=== PATIENT | female | born 1985 | race African-American/Black ===

== ENCOUNTER 2022-01-21 18:27 | Inpatient (IN) | payer BC ==
[2022-01-21] MEDS ORDERED: SODIUM CHLORIDE 0.9% 500 ML 500 ML IV STA (19:12)
--- NOTE | 2022-01-21 19:21 | ED ---
General Adult HPI - General Chief complaint: Chest Pain Stated complaint: SOB/Chest pain/Back pain Time Seen by Provider: 01/21/22 19:03 Source: patient Mode of arrival: wheelchair Limitations: no limitations - History of Present Illness Initial comments: This 36-year-old female with past medical history of a pulmonary embolism in May 2021 and hypertension presents emergency Department with shortness of breath, back pain with deep inspiration and episodic chest pain. Patient states all the symptoms have been present for the last 2 weeks, however the last 1-2 days while the symptoms have been worsening. Patient states her shortness of breath and pain with deep inspiration are constant, however the chest pain seems to come and go. Patient states she did have pulmonary embolism last May and was placed on Xerelto. Patient states she is taking 20 mg one time a day and has been taking this since she had a pulmonary embolism in May 2021. Patient states she does currently take lisinopril for her high blood pressure. Patient states over the last couple days she has also noticed a dry cough along with nasal congestion. Patient states her back pain is currently 8/10 when taking a deep inspiration. Patient denies any abdominal pain, nausea, vomiting, hemoptysis, change in bowel or bladder, lower back pain, neck pain, saddle anes thesia, bowel or bladder retention/incontinence, change in vision, headache, lightheadedness, dizziness. Patient denies any jaw pain or arm pain. Patient denies any recent calf pain, swelling, tenderness or redness. Patient denies any works or edema or swelling. - Related Data Home Medications Medication Instructions Recorded Confirmed Ferrous Sulfate [Feosol] 325 mg PO DAILY 01/21/22 01/21/22 Rivaroxaban [Xarelto] 20 mg PO DAILY 01/21/22 01/21/22 lisinopriL [Zestril] 10 mg PO DAILY 01/21/22 01/21/22 Allergies Allergy/AdvReac Type Severity Reaction Status Date / Time No Known Allergies Allergy Verified 01/21/22 20:10 Review of Systems ROS Statement: Those systems with pertinent positive or pertinent negative responses have been documented in the HPI. ROS Other: All systems not noted in ROS Statement are negative. Past Medical History Past Medical History: No Reported History History of Any Multi-Drug Resistant Organisms: None Reported Past Surgical History: No Surgical Hx Reported Past Psychological History: No Psychological Hx Reported Smoking Status: Former smoker Past Alcohol Use History: None Reported Past Drug Use History: None Reported General Exam Limitations: no limitations General appearance: alert, in no apparent distress Head exam: Present: atraumatic, normocephalic, normal inspection Eye exam: Present: normal appearance, PERRL, EOMI. Absent: scleral icterus, conjunctival injection, periorbital swelling ENT exam: Present: normal exam, mucous membranes moist Neck exam: Present: normal inspection, full ROM. Absent: tenderness, meningismus, lymphadenopathy Respiratory exam: Present: normal lung sounds bilaterally. Absent: respiratory distress, wheezes, rales, rhonchi, stridor Cardiovascular Exam: Present: regular rate, normal rhythm, normal heart sounds. Absent: systolic murmur, diastolic murmur, rubs, gallop, clicks GI/Abdominal exam: Present: soft, normal bowel sounds. Absent: distended, tenderness, guarding, rebound, rigid Extremities exam: Present: normal inspection, full ROM, normal capillary refill. Absent: tenderness, pedal edema, joint swelling, calf tenderness Back exam: Present: normal inspection, full ROM, paraspinal tenderness (Thoracic paraspinal tenderness to palpation). Absent: CVA tenderness (R), CVA tenderness (L), vertebral tenderness Neurological exam: Present: alert, oriented X3, CN II-XII intact Psychiatric exam: Present: normal affect, normal mood Skin exam: Present: warm, dry, intact, normal color. Absent: rash Course Vital Signs 01/21/22 01/21/22 01/21/22 18:31 18:49 22:01 Temperature 97.6 F Pulse Rate 85 79 Pulse Rate [ 78 Interlocking Installer ] Respiratory 16 18 Rate Blood Pressure 175/103 149/79 O2 Sat by Pulse 99 99 Oximetry EKG Findings - EKG Comments: EKG Findings:: EKG impression: Sinus rhythm. Ventricular rate 76 beats a minute. NC interval 146. QRS duration 75. QT/QTc 406/437. Review to myself and my attending, Dr. Lubin. Medical Decision Making - Medical Decision Making This 36-year-old female presents emergency department with increased shortness of breath, pain with deep inspiration and episodic chest pain. Patient currently is taking Xarelto 20 mg 1 times a day since last May when she was diagnosed with bilateral pulmonary embolisms. Patient with hemoglobin 7.5- patient states she is unsure her hemoglobin usually is, however she states she does take iron supplement. Patient's coagulation unremarkable. Chemistry unremarkable. Troponin less than 0.012. COVID-19, influenza A/B not detected. Chest x-ray without any acute abnormalities. Patient CTA impression evidence of multiple emboli in the lower lobe pulmonary artery branches bilaterally. Discussed case with my attending, Dr. Lubin. Spoke with Scott Arora from [facility] who agreed to accept patient to their services. He suggested I start patient on high-dose heparin. I did start patient on high-dose heparin here in the emergency department. I did consult hematology. Patient verbally agreed to be admitted for further evaluation, workup and treatment. - Lab Data Result diagrams: 01/21/22 19:25 01/21/22 19:25 Lab Results 01/21/22 01/21/22 01/21/22 Range/Units 19:25 19:25 19:25 WBC 6.8 (3.8-10.6) k/uL RBC 4.88 (3.80-5.40) m/uL Hgb 7.5 L (11.4-16.0) gm/dL Hct 27.6 L (34.0-46.0) % MCV 56.5 L (80.0-100.0) fL MCH 15.4 L (25.0-35.0) pg MCHC 27.2 L (31.0-37.0) g/dL RDW 21.6 H (11.5-15.5) % Plt Count 257 (150-450) k/uL MPV 6.9 Neutrophils % 59 % Lymphocytes % 31 % Monocytes % 5 % Eosinophils % 2 % Basophils % 1 % Neutrophils # 4.0 (1.3-7.7) k/uL Lymphocytes # 2.1 (1.0-4.8) k/uL Monocytes # 0.3 (0-1.0) k/uL Eosinophils # 0.1 (0-0.7) k/uL Basophils # 0.0 (0-0.2) k/uL Manual Slide Review Performed Hypochromasia Marked Poikilocytosis Slight Poikilocytosis (manual Present Anisocytosis Moderate Microcytosis Marked Target Cells Present PT 10.2 (9.0-12.0) sec INR 0.9 (<1.2) APTT 22.4 (22.0-30.0) sec Sodium 138 (137-145) mmol/L Potassium 3.9 (3.5-5.1) mmol/L Chloride 107 (98-107) mmol/L Carbon Dioxide 19 L (22-30) mmol/L Anion Gap 12 mmol/L BUN 10 (7-17) mg/dL Creatinine 0.74 (0.52-1.04) mg/dL Est GFR (CKD-EPI)AfAm >90 (>60 ml/min/1.73 sqM) Est GFR (CKD-EPI)NonAf >90 (>60 ml/min/1.73 sqM) Glucose 102 H (74-99) mg/dL Calcium 8.6 (8.4-10.2) mg/dL Magnesium 1.9 (1.6-2.3) mg/dL Total Bilirubin 0.5 (0.2-1.3) mg/dL AST 30 (14-36) U/L ALT 18 (4-34) U/L Alkaline Phosphatase 95 (38-126) U/L Troponin I (0.000-0.034) ng/mL Total Protein 7.4 (6.3-8.2) g/dL Albumin 3.9 (3.5-5.0) g/dL Lipase 61 (23-300) U/L Coronavirus (PCR) (Not Detectd) Influenza Type A RNA (Not Detectd) Influenza Type B (PCR) (Not Detectd) 01/21/22 01/21/22 01/21/22 Range/Units 19:25 19:25 19:25 WBC (3.8-10.6) k/uL RBC (3.80-5.40) m/uL Hgb (11.4-16.0) gm/dL Hct (34.0-46.0) % MCV (80.0-100.0) fL MCH (25.0-35.0) pg MCHC (31.0-37.0) g/dL RDW (11.5-15.5) % Plt Count (150-450) k/uL MPV Neutrophils % % Lymphocytes % % Monocytes % % Eosinophils % % Basophils % % Neutrophils # (1.3-7.7) k/uL Lymphocytes # (1.0-4.8) k/uL Monocytes # (0-1.0) k/uL Eosinophils # (0-0.7) k/uL Basophils # (0-0.2) k/uL Manual Slide Review Hypochromasia Poikilocytosis Poikilocytosis (manual Anisocytosis Microcytosis Target Cells PT (9.0-12.0) sec INR (<1.2) APTT (22.0-30.0) sec Sodium (137-145) mmol/L Potassium (3.5-5.1) mmol/L Chloride (98-107) mmol/L Carbon Dioxide (22-30) mmol/L Anion Gap mmol/L BUN (7-17) mg/dL Creatinine (0.52-1.04) mg/dL Est GFR (CKD-EPI)AfAm (>60 ml/min/1.73 sqM) Est GFR (CKD-EPI)NonAf (>60 ml/min/1.73 sqM) Glucose (74-99) mg/dL Calcium (8.4-10.2) mg/dL Magnesium (1.6-2.3) mg/dL Total Bilirubin (0.2-1.3) mg/dL AST (14-36) U/L ALT (4-34) U/L Alkaline Phosphatase (38-126) U/L Troponin I <0.012 (0.000-0.034) ng/mL Total Protein (6.3-8.2) g/dL Albumin (3.5-5.0) g/dL Lipase (23-300) U/L Coronavirus (PCR) Not Detected (Not Detectd) Influenza Type A RNA Not Detected (Not Detectd) Influenza Type B (PCR) Not Detected (Not Detectd) Disposition Clinical Impression: Pulmonary embolism, bilateral Disposition: ADMITTED IP TO THIS [facility] Condition: Serious Referrals: None,Stated [Primary Care Provider] - 1-2 days
[2022-01-21 19:32] LABS: Anisocytosis Moderate; Basophils % (A) 1 %; Eosinophils # (A) 0.1 k/uL (0-0.7); Eosinophils % (A) 2 %; HCT 27.6 % (34.0-46.0); HGB 7.5 gm/dL (11.4-16.0); Hypochromasia Marked; Lymphocytes # (A) 2.1 k/uL (1.0-4.8); Lymphocytes % (A) 31 %; MCH 15.4 pg (25.0-35.0); MCHC 27.2 g/dL (31.0-37.0); MCV 56.5 fL (80.0-100.0); Mean Platelet Volume 6.9; Microcytosis Marked; Monocytes # (A) 0.3 k/uL (0-1.0); Monocytes % (A) 5 %; Neutrophils % (A) 59 %; Platelet Count 257 k/uL (150-450); Poikilocytosis Slight; RBC 4.88 m/uL (3.80-5.40); RDW 21.6 % (11.5-15.5); WBC 6.8 k/uL (3.8-10.6)
--- NOTE | 2022-01-21 19:41 | XR ---
EXAMINATION TYPE: XR chest 2V DATE OF EXAM: 01/21/2022 COMPARISON: NONE HISTORY: Short of breath TECHNIQUE: 2 views FINDINGS: Heart and mediastinum are normal. Lungs are clear. Diaphragm is normal. Bony thorax appears normal. IMPRESSION: Normal chest
[2022-01-21 19:55] LABS: ALT 18 U/L (4-34); AST 30 U/L (14-36); African American GFR (CKD) >90 (>60 ml/min/1.73 sqM); Albumin 3.9 g/dL (3.5-5.0); Alkaline Phosphatase 95 U/L (38-126); Anion Gap 12 mmol/L; Blood Urea Nitrogen 10 mg/dL (7-17); Calcium 8.6 mg/dL (8.4-10.2); Carbon Dioxide 19 mmol/L (22-30); Chloride 107 mmol/L (98-107); Glucose 102 mg/dL (74-99); Lipase 61 U/L (23-300); Magnesium 1.9 mg/dL (1.6-2.3); Non-African American GFR(CKD) >90 (>60 ml/min/1.73 sqM); Potassium 3.9 mmol/L (3.5-5.1); Sodium 138 mmol/L (137-145); Total Bilirubin 0.5 mg/dL (0.2-1.3); Total Protein 7.4 g/dL (6.3-8.2)
[2022-01-21 19:56] LABS: INR 0.9 (<1.2)
[2022-01-21 19:57] LABS: Partial Thromboplastin Time 22.4 sec (22.0-30.0); Prothrombin Time 10.2 sec (9.0-12.0)
--- NOTE | 2022-01-21 20:03 | CT ---
EXAMINATION TYPE: CT chest angio for PE DATE OF EXAM: 01/21/2022 COMPARISON: None HISTORY: Chest and back pain. CT DLP: 914.1 mGycm Automated exposure control for dose reduction was used. CONTRAST: Performed with IV Contrast, patient injected with 65ml mL of Isovue 370. Images obtained from the thoracic inlet to the diaphragm with IV contrast. There are Three-D postproc essed images. Mediastinum is normal. There is no thoracic aortic aneurysm or dissection. There are no hilar masses. Heart size is normal. No pericardial effusion. The lungs are clear of infiltrate. No evidence of a pulmonary mass. There is some minimal interstitia l density in the lateral right lower lobe. There appears to be some fusiform filling defect in the lower lobe pulmonary artery branches bilatera lly. The thoracic spine is intact. Sternum is intact. There is no compression fracture. Upper abdominal so ft tissues are intact. There are clips from gastric bariatric surgery. IMPRESSION: Exam shows evidence of multiple emboli in the lower lobe pulmonary artery branches bilaterally.
[2022-01-21 20:21] LABS: Poikilocytosis (M) Present; Target Cells Present
[2022-01-21] MEDS ORDERED: HEPARIN SODIUM 1,000 UN/ML (10ML VL) IV ONE (21:50)
[2022-01-21] MEDS ORDERED: HEPARIN SODIUM 1,000 UN/ML (10ML VL) IV PRN (21:50)
[2022-01-21] MEDS ORDERED: NALOXONE 0.4 MG/ML 1 ML VIAL IV PRN (21:52)
[2022-01-21] MEDS ORDERED: ONDANSETRON 4 MG/2 ML VIAL IVP PRN (21:52)
[2022-01-21] MEDS ORDERED: MORPHINE SULFATE 2 MG/ML SYRINGE IV PRN (21:52)
[2022-01-21] MEDS: HEPARIN SOD,PORK IN 0.45% NACL 25,000 UNIT in 0.45% NACL 1 250ML.BAG IV SCH (22:21)
[2022-01-21] MEDS: SODIUM CHLORIDE 0.9% 1,000 ML IV SCH (22:22)
[2022-01-21 23:23] LABS: Prothrombin Time 10.4 sec (9.0-12.0)
[2022-01-21 23:38] LABS: Partial Thromboplastin Time 21.5 sec (22.0-30.0)
[2022-01-22 04:51] LABS: Anisocytosis Moderate; Basophils % (A) 0 %; Eosinophils # (A) 0.2 k/uL (0-0.7); Eosinophils % (A) 2 %; HCT 25.1 % (34.0-46.0); Hypochromasia Marked; Lymphocytes # (A) 2.7 k/uL (1.0-4.8); Lymphocytes % (A) 39 %; MCH 15.2 pg (25.0-35.0); MCHC 26.2 g/dL (31.0-37.0); MCV 58.2 fL (80.0-100.0); Mean Platelet Volume 6.9; Microcytosis Marked; Monocytes # (A) 0.3 k/uL (0-1.0); Monocytes % (A) 4 %; Neutrophils # (A) 3.6 k/uL (1.3-7.7); Neutrophils % (A) 51 %; Platelet Count 237 k/uL (150-450); Poikilocytosis Slight; RBC 4.32 m/uL (3.80-5.40); RDW 21.8 % (11.5-15.5); WBC 7.1 k/uL (3.8-10.6)
[2022-01-22 04:57] LABS: HGB 6.6 gm/dL (11.4-16.0)
[2022-01-22 05:32] LABS: Anisocytosis (M) Present; Poikilocytosis (M) Present; Polychromasia Present; RBC Fragments Present; Target Cells 2+
[2022-01-22] MEDS: lisinopriL 10 MG TAB PO SCH (09:37)
[2022-01-22] MEDS: FERROUS SULFATE 325 MG TAB PO SCH (09:37)
[2022-01-22 10:55] LABS: Anisocytosis Marked; Basophils % (A) 0 %; Eosinophils # (A) 0.1 k/uL (0-0.7); Eosinophils % (A) 2 %; HGB 7.7 gm/dL (11.4-16.0); Hypochromasia Marked; Lymphocytes # (A) 1.7 k/uL (1.0-4.8); Lymphocytes % (A) 30 %; MCH 16.2 pg (25.0-35.0); MCHC 27.5 g/dL (31.0-37.0); MCV 58.9 fL (80.0-100.0); Mean Platelet Volume 8.3; Microcytosis Marked; Monocytes # (A) 0.2 k/uL (0-1.0); Monocytes % (A) 4 %; Neutrophils # (A) 3.4 k/uL (1.3-7.7); Neutrophils % (A) 60 %; Platelet Count 238 k/uL (150-450); Poikilocytosis Moderate; RBC 4.76 m/uL (3.80-5.40); WBC 5.6 k/uL (3.8-10.6)
[2022-01-22] MEDS ORDERED: HEPARIN SODIUM 1,000 UN/ML (10ML VL) IV PRN (11:09)
[2022-01-22 11:17] LABS: Poikilocytosis (M) Present; Target Cells Present; Tear Drop Cells Present
[2022-01-22] MEDS: HEPARIN SOD,PORK IN 0.45% NACL 25,000 UNIT in 0.45% NACL 1 250ML.BAG IV SCH ×3 (11:17→17:52)
[2022-01-22 11:18] LABS: Mixed Population RBC Present; Polychromasia Present
--- NOTE | 2022-01-22 13:00 | ECHOF ---
Referral Reason:PE MEASUREMENTS -------- HEIGHT: 152.4 cm WEIGHT: 136.1 kg BP: 130/56 RVIDd: 3.1 cm (< 3.3) IVSd: 1.1 cm (0.6 - 1.1) LVIDd: 4.9 cm (3.9 - 5.3) LVPWd: 1.1 cm (0.6 - 1.1) IVSs: 1.8 cm LVIDs: 2.7 cm LVPWs: 1.5 cm LA Diam: 4.2 cm (2.7 - 3.8) LAESV Index (A-L): 34.93 ml/m Ao Diam: 2.7 cm (2.0 - 3.7) AV Cusp: 2.1 cm (1.5 - 2.6) MV EXCURSION: 9.111 mm (> 18.000) MV EF SLOPE: 57 mm/s (70 - 150) EPSS: 0.7 cm MV E Moshe: 1.10 m/s MV DecT: 260 ms MV A Moshe: 0.91 m/s MV E/A Ratio: 1.22 AV maxP.73 mmHg AV meanP.30 mmHg RAP: 5.00 mmHg RVSP: 36.08 mmHg FINDINGS -------- Sinus rhythm. This was a technically good study. The left ventricular size is normal. There is borderline concentric left ventricular hypertrophy. Overall left ventricular systolic function is normal with, an EF between 60 - 65 %. The right ventricle is normal in size. LA is moderately dilated 34-39 ml/m2 The right atrium is normal in size. Interatrial and interventricular septum intact. Trace to mild aortic regurgitation. There is trace to mild mitral regurgitation. Mild tricuspid regurgitation present. There is mild pulmonary hypertension. The right ventricular systolic pressure, as measured by Doppler, is 36.08mmHg. Trace/mild (physiologic) pulmonic regurgitation. The aortic root size is normal. Normal inferior vena cava with normal inspiratory collapse consistent with estimated right atrial pre ssure of 5 mmHg. There is no pericardial effusion. CONCLUSIONS -------- 1. The left ventricular size is normal. 2. There is borderline concentric left ventricular hypertrophy. 3. Overall left ventricular systolic function is normal with, an EF between 60 - 65 %. 4. LA is moderately dilated 34-39 ml/m2 5. Trace to mild aortic regurgitation. 6. There is trace to mild mitral regurgitation. 7. Mild tricuspid regurgitation present. 8. There is mild pulmonary hypertension. 9. The right ventricular systolic pressure, as measured by Doppler, is 36.08mmHg. 10. Trace/mild (physiologic) pulmonic regurgitation. 11. There is no pericardial effusion. GLOVE TURNER: Amanda Mosquera RDCS
[2022-01-22 14:09] LABS: Appearance,Urine Clear (Clear); Bilirubin,Urine Negative (Negative); Blood,Urine Negative (Negative); Color,Urine Light Yellow; Glucose,Urine (UA) Negative (Negative); Ketones,Urine Negative (Negative); Leukocyte Esterase,Urine Negative (Negative); Nitrite,Urine Negative (Negative); Protein,Urine Negative (Negative); Specific Gravity,Urine 1.008 (1.001-1.035); Urobilinogen,Urine <2.0 mg/dL (<2.0)
--- NOTE | 2022-01-22 14:39 | P.HPIM ---
History of Present Illness H&P Date: 01/22/22 This is a 36 year old female in the with complaints of increased shortness of breath and back pain with deep inspiration. Patient has symptoms ongoing for the last 2 weeks with interval worsening the last 1-2 days. Patient also presents with dry cough and nasal congestion. Denies fever. Patient does have a history of pulmonary embolism in May 2021 as well as hypertension. Patient had gastric bypass 10 years and since has had issues with iron deficiency anemia requiring weekly iron transfusions. Danis following with Dr Kaushik Lopez in the primary care setting. She is from [place], and was following with a harbormaster there. Reports no complications from bypass surgery. Home medicati ons include xarelto and lisinopril, and daily iron supplement. Patient states that she had a chest CT done recently which did not show any pulmonary emboli, and states at that time her hemoglobin was low and she was offered blood transfusion but she declined. She has chronic fatigue related to anemia, as well as shortness of breath which she states makes it difficult to exercise. She is currently working, and has a desk job, she is mostly sedentary. There is a family history of blood clots, states her aunt and cousin, also family history of diabetes mellitus, hypertension. Denies history or family history of known clotting disorder, and she has never had clotting studies done. Chest x-ray on admission shows normal chest. Chest CTA showing multiple emboli in the lower lobe pulmonary artery branches bilaterally. EKG shows sinus rhythm heart rate 76, QT interval 437. On admission hemoglobin was found to be 7.5, troponin negative. Patient is negative for Covid, and influenza A/B. Admitted to the hospital and started on high intensity heparin gtt. Subsequently patients hemoglobin dropped to 6.6 this morning and 1 unit of packed red blood cells has been ordered with hemoglobin afterwards 7.7. Hematology was consulted for further evaluation, iron studes, B12 and folate have been ordered. She continues on heparin gtt at low intensity after discussion with hematology. Echocardiogram has been completed with no evidence for right heart strain, ejection fraction reported at 60-65%, the left atrium is moderately dilated, there is trace to mild aortic and mitral regurg, mild tricuspid regurg, mild pulmonary hypertension, no pericardial effusion. REVIEW OF SYSTEMS: CONSTITUTIONAL: No fever, no malaise. Reports fatigue. HEENT: No recent visual problems or hearing problems. Denied any sore throat. CARDIOVASCULAR: No chest pain, orthopnea, PND, no palpitations, no syncope. PULMONARY: Denies hemoptysis, reports shortness of breath with exertion, reports non productive cough. GASTROINTESTINAL: No diarrhea, no nausea, no vomiting, no abdominal pain. NEUROLOGICAL: No headaches, no weakness, no numbness. HEMATOLOGICAL: Denies any bleeding or petechiae. GENITOURINARY: Denies any burning micturition, frequency, or urgency. MUSCULOSKELETAL/RHEUMATOLOGICAL: Denies any joint pain, swelling, or any muscle pain. ENDOCRINE: Denies any polyuria or polydipsia. The rest of the 14-point review of systems is negative. PHYSICAL EXAMINATION: GENERAL: The patient is alert and oriented x3, not in any acute distress. Well developed, well nourished. Obese. HEENT: Pupils are round and equally reacting to light. EOMI. No scleral icterus. No conjunctival pallor. Normocephalic, atraumatic. No pharyngeal erythema. No thyromegaly. CARDIOVASCULAR: S1 and S2 present. No murmurs, rubs, or gallops. PULMONARY: Chest is clear to auscultation, no wheezing or crackles. ABDOMEN: Soft, nontender, nondistended, normoactive bowel sounds. No palpable or ganomegaly. MUSCULOSKELETAL: No joint swelling or deformity. EXTREMITIES: No cyanosis, clubbing, or pedal edema. NEUROLOGICAL: Gross neurological examination did not reveal any focal deficits. SKIN: No rashes. Assessment and plan Assessment 1 Dyspnea secondary to acute bilateral pulmonary emboli with history of PE. Patient is anticoagulated with xarelto in the outpatient setting, she is now on heparin infusion. Patient will need lifelong anticoagulation. -Acute on chronic anemia, iron deficient, exacerbated by supratherapeutic ptt while on heparin infusion. Patient is maintained on iron transfusions weekly. Has not had one recently. No evidence for acute bleeding. -Mild pulmonary hypertension -History hypertension maintained on lisinopril -S/P Bariatric surgery in 2011 -Obesity -History anxiety/depression -Never smoker -History of marijuana use quit in 2020 GI prophylaxis: Pepcid DVT prophylaxis: heparin infusion Full Code Plan Transfuse 1 unit PRBC today Check Iron studies, B12, folate level 2D echocardiogram reviewed, EF 60-65% Venous doppler Follow up CBC in AM Hematology consultation The impression and plan of care has been dictated by Debo Kilpatrick Nurse Practitioner as directed. Dr. Randall MD I have performed a history and physical examination and medical decision making of this patient, discussed the same with the dictator, and agree with the dictators assessment and plan as written, documented as a scribe. Based on total visit time, I have performed more than 50% of this visit. Past Medical History Past Medical History: No Reported History History of Any Multi-Drug Resistant Organisms: None Reported Past Surgical History: No Surgical Hx Reported Past Psychological History: No Psychological Hx Reported Smoking Status: Former smoker Past Alcohol Use History: None Reported Past Drug Use History: None Reported - Past Family History Mother Family Medical History: Diabetes Mellitus, Hypertension, Vascular Disorder Additional Family Medical History / Comment(s): Maternal side of family cousin and great Aunt with blood clots. Father Family Medical History: Diabetes Mellitus Additional Family Medical History / Comment(s): Bleeding hemorrhoids that required transfusions, heart problems. Medications and Allergies Home Medications Medication Instructions Recorded Confirmed Type Ferrous Sulfate [Feosol] 325 mg PO DAILY 01/21/22 01/21/22 History Rivaroxaban [Xarelto] 20 mg PO DAILY 01/21/22 01/21/22 History lisinopriL [Zestril] 10 mg PO DAILY 01/21/22 01/21/22 History Allergies Allergy/AdvReac Type Severity Reaction Status Date / Time No Known Allergies Allergy Verified 01/21/22 20:10 Physical Exam Vitals: Vital Signs Temp Pulse Pulse Resp BP Pulse Ox 01/22/22 08:00 97.0 F L 69 17 130/56 97 01/22/22 07:25 97 F L 69 18 130/56 97 01/22/22 06:55 97.4 F L 65 18 152/78 01/22/22 06:45 97.4 F L 63 18 143/70 01/22/22 06:39 97.3 F L 65 18 152/84 97 01/22/22 05:00 73 18 141/94 96 01/22/22 02:33 69 18 139/95 95 01/21/22 22:01 79 18 149/79 99 01/21/22 18:49 78 01/21/22 18:31 97.6 F 85 16 175/103 99 Intake and Output 01/21/22 01/22/2222 22:59 06:59 14:59 Intake Total 154.463 276 Balance 154.463 276 Intake: Intake, IV Titration 154.463 Amount Heparin Sod,Pork in 0.45% 154.463 NaCl 25,000 unit In 0.45 % NaCl 1 250ml.bag @ 16.9 UNITS/KG/HR 22.997 mls/ hr IV .[id number] [facility] Rx#: [id number] Blood Product 0 276 Rc Pheresis 2 As3 Unit 0 276 [id number] Other: Weight 136.078 kg Results CBC & Chem 7: 01/22/22 10:29 01/21/22 19:25 Labs: Abnormal Lab Results - Last 24 Hours (Table) 01/21/22 01/21/22 01/21/22 Range/Units 19:25 19:25 21:58 Hgb 7.5 L (11.4-16.0) gm/dL Hct 27.6 L (34.0-46.0) % MCV 56.5 L (80.0-100.0) fL MCH 15.4 L (25.0-35.0) pg MCHC 27.2 L (31.0-37.0) g/dL RDW 21.6 H (11.5-15.5) % APTT 21.5 L (22.0-30.0) sec Carbon Dioxide 19 L (22-30) mmol/L Glucose 102 H (74-99) mg/dL Crossmatch 01/22/22 01/22/22 01/22/22 Range/Units 03:39 03:39 05:30 Hgb 6.6 L* (11.4-16.0) gm/dL Hct 25.1 L (34.0-46.0) % MCV 58.2 L (80.0-100.0) fL MCH 15.2 L (25.0-35.0) pg MCHC 26.2 L (31.0-37.0) g/dL RDW 21.8 H (11.5-15.5) % APTT >200.0 H* (22.0-30.0) sec Carbon Dioxide (22-30) mmol/L Glucose (74-99) mg/dL Crossmatch See Detail Assessment and Plan Time with Patient: Less than 30
[2022-01-22 15:31] LABS: % Iron Saturation 37.58 (12.00-45.00)
--- NOTE | 2022-01-22 15:58 | US ---
EXAMINATION TYPE: US venous doppler duplex LE BI DATE OF EXAM: 01/22/2022 1:08 PM COMPARISON: NONE CLINICAL HISTORY: 36-year-old female bilateral PE. SIDE PERFORMED: Bilateral TECHNIQUE: The lower extremity deep venous system is examined utilizing real time linear array sonog matti with graded compression, doppler sonography and color-flow sonography. VESSELS IMAGED: Common Femoral Vein Deep Femoral Vein Greater Saphenous Vein * Femoral Vein Popliteal Vein Small Saphenous Vein * Proximal Calf Veins (* superficial vessels) [employer] P[employer] Supervisor notes: Gross morbid obesity. Technically difficult. Right Leg: Negative for DVT as seen. Left Leg: Negative for DVT as seen. IMPRESSION: Exam limitation as above. No evidence for DVT within the bilateral lower extremities imaged from the groin to the knee on either side.
[2022-01-22] MEDS: amLODIPine 5 MG TAB PO SCH (17:02)
[2022-01-22] MEDS: SODIUM CHLORIDE 0.9% 1,000 ML IV SCH (18:41)
--- NOTE | 2022-01-22 20:28 | P.CONS ---
History of Present Illness - Reason for Consult Consult date: 01/22/22 Recurrent bilateral PE Requesting physician: Tonya Oscar - Chief Complaint SOB, activity intolerance - History of Present Illness Mrs. Chan is a pleasant 36-year-old female we've been asked to see for recurrent pulmonary embolism. Patient states she was diagnosed in May 2021 with bilateral pulmonary emboli. She presented with progressive shortness of breath and activity intolerance over 2 weeks. She states that she was diagnosed at [facility] in [facility], treated by Cryptographic Technician Dr. Sloan. Not certain if she's had hypercoagulable workup. Recommendation was for one year of anticoagulation. Patient states that she may have missed a few doses since visiting up here. She also relays that she was told to hold anticoagulation during menses because of heavy bleeding. She states that she held Xarelto for 2-3 days about 3 weeks ago. She denies any other bleeding while on anticoagulation. Patient presents currently with the same symptoms as previously, activity intolerance, shortness of breath with speaking. CTA is positive for bilateral PE. Patient does have a family history of clotting- a maternal cousin and maternal great aunt. She is not on hormones or oral control. She denies any history of surgeries other than gastric bypass 10 years ago. She is supposed to be on at least weekly iron infusions. She has been taking oral iron. She does occasionally smoke marijuana, no tobacco. No personal history of cancer. Medicated for HTN. Review of Systems 14 point ROS is neg except as stated in HPI 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 History of Any Multi-Drug Resistant Organisms: None Reported Additional Past Surgical History / Comment(s): gastric bypass approx 2011 Past Anesthesia/Blood Transfusion Reactions: No Reported Reaction Past Psychological History: No Psychological Hx Reported Smoking Status: Former smoker (marijuana, not tobacco) Past Alcohol Use History: None Reported Past Drug Use History: Marijuana - Past Family History Mother Additional Family Medical History / Comment(s): Maternal side of family cousin and great Aunt with blood clots Father Family Medical History: Diabetes Mellitus Additional Family Medical History / Comment(s): Bleeding hemorrhoids that required transfusions, heart problems. Medications and Allergies Home Medications Medication Instructions Recorded Confirmed Type Ferrous Sulfate [Feosol] 325 mg PO DAILY 01/21/22 01/21/22 History Rivaroxaban [Xarelto] 20 mg PO DAILY 01/21/22 01/21/22 History lisinopriL [Zestril] 10 mg PO DAILY 01/21/22 01/21/22 History Allergies Allergy/AdvReac Type Severity Reaction Status Date / Time No Known Allergies Allergy Verified 01/21/22 20:10 Physical Exam Vitals: Vital Signs Temp Pulse Pulse Resp BP Pulse Ox 01/22/22 11:23 97.1 F L 79 18 156/107 98 01/22/22 08:00 97.0 F L 69 17 130/56 97 01/22/22 07:25 97 F L 69 18 130/56 97 01/22/22 06:55 97.4 F L 65 18 152/78 01/22/22 06:45 97.4 F L 63 18 143/70 01/22/22 06:39 97.3 F L 65 18 152/84 97 01/22/22 05:00 73 18 141/94 96 01/22/22 02:33 69 18 139/95 95 01/21/22 22:01 79 18 149/79 99 01/21/22 18:49 78 01/21/22 18:31 97.6 F 85 16 175/103 99 Intake and Output 01/21/22 01/22/22 01/22/22 22:59 06:59 14:59 Intake Total 154.463 276 Balance 154.463 276 Intake: Intake, IV Titration 154.463 Amount Heparin Sod,Pork in 0.45% 154.463 NaCl 25,000 unit In 0.45 % NaCl 1 250ml.bag @ 16.9 UNITS/KG/HR 22.997 mls/ hr IV .[id number] [facility] Rx#: [id number] Blood Product 0 276 Rc Pheresis 2 As3 Unit 0 276 [id number] Other: Weight 136.078 kg - Constitutional General appearance: cooperative, morbidly obese, no acute distress - EENT Eyes: anicteric sclerae, EOMI ENT: hearing grossly normal, normal oropharynx - Neck Neck: no lymphadenopathy - Respiratory Respiratory: bilateral: CTA - Cardiovascular Rhythm: regular Heart sounds: normal: S1, S2 Abnormal Heart Sounds: no systolic murmur, no diastolic murmur, no rub, no S3 Gallop, no S4 Gallop, no click, no other leg Peripheral Edema: bilateral: None - Gastrointestinal General gastrointestinal: no absent bowel sounds, no decreased bowel sounds, no distended, no hepatomegaly, no hyperactive bowel sounds, normal bowel sounds, no organomegaly, no rigid, no scaphoid, soft, no splenomegaly, no tenderness, no umbilical hernia, no ventral hernia - Integumentary Integumentary: normal - Neurologic Neurologic: CNII-XII intact - Musculoskeletal Musculoskeletal: strength equal bilaterally - Psychiatric Psychiatric: A&O x's 3, appropriate affect, intact judgment & insight Results CBC & Chem 7: 01/22/22 10:29 01/21/22 19:25 Labs: Abnormal Lab Results - Last 24 Hours (Table) 01/21/22 01/21/22 01/21/22 Range/Units 19:25 19:25 21:58 Hgb 7.5 L (11.4-16.0) gm/dL Hct 27.6 L (34.0-46.0) % MCV 56.5 L (80.0-100.0) fL MCH 15.4 L (25.0-35.0) pg MCHC 27.2 L (31.0-37.0) g/dL RDW 21.6 H (11.5-15.5) % APTT 21.5 L (22.0-30.0) sec Carbon Dioxide 19 L (22-30) mmol/L Glucose 102 H (74-99) mg/dL Crossmatch 01/22/22 01/22/22 01/22/22 Range/Units 03:39 03:39 05:30 Hgb 6.6 L* (11.4-16.0) gm/dL Hct 25.1 L (34.0-46.0) % MCV 58.2 L (80.0-100.0) fL MCH 15.2 L (25.0-35.0) pg MCHC 26.2 L (31.0-37.0) g/dL RDW 21.8 H (11.5-15.5) % APTT >200.0 H* (22.0-30.0) sec Carbon Dioxide (22-30) mmol/L Glucose (74-99) mg/dL Crossmatch See Detail 01/22/22 01/22/22 Range/Units 10:29 10:29 Hgb 7.7 L (11.4-16.0) gm/dL Hct 28.0 L (34.0-46.0) % MCV 58.9 L (80.0-100.0) fL MCH 16.2 L (25.0-35.0) pg MCHC 27.5 L (31.0-37.0) g/dL RDW 24.0 H (11.5-15.5) % APTT 30.9 H (22.0-30.0) sec Carbon Dioxide (22-30) mmol/L Glucose (74-99) mg/dL Crossmatch Chest x-ray: report reviewed CT scan - chest: report reviewed Assessment and Plan (1) Pulmonary embolism, bilateral Current Visit: Yes Status: Acute Priority: High Code(s): I26.99 - OTHER PULMONARY EMBOLISM WITHOUT ACUTE COR PULMONALE SNOMED Code(s): 95966603 Plan: Discussed with patient concerns for holding Xarelto as well as missing doses. Could be cause of recurrent PE. I will try to get some records from Hospital in [place] to see if it can be determined if current PE is chronic, acute or acute on chronic. Doppler of the bilateral lower extremities for baseline. Patient is being transfused with 1 unit of blood for hemoglobin of 6.6. Iron studies were requested on admission blood. Anemia likely, because of gastric bypass, patient is suspected to be severely iron deficient. She reports she was supposed to be receiving weekly iron infusions in [place]. We'll await a few labs then proceed with ordering parenteral iron. Cont low intensity heparin drip for now Further recommendations to follow
[2022-01-22] MEDS: FAMOTIDINE 20 MG TAB PO SCH (23:44)
[2022-01-23 09:25] LABS: Prothrombin Time 10.6 sec (9.0-12.0)
[2022-01-23 09:27] LABS: Anisocytosis Moderate; HCT 28.6 % (34.0-46.0); Hypochromasia Marked; MCH 16.5 pg (25.0-35.0); MCV 58.8 fL (80.0-100.0); Mean Platelet Volume 7.9; Microcytosis Marked; Platelet Count 272 k/uL (150-450); Poikilocytosis Moderate; RBC 4.86 m/uL (3.80-5.40); RDW 23.4 % (11.5-15.5); WBC 7.6 k/uL (3.8-10.6)
[2022-01-23] MEDS: lisinopriL 10 MG TAB PO SCH (09:39)
[2022-01-23] MEDS: FAMOTIDINE 20 MG TAB PO SCH ×2 (09:39→23:19)
[2022-01-23] MEDS: amLODIPine 5 MG TAB PO SCH (09:39)
[2022-01-23] MEDS: FERROUS SULFATE 325 MG TAB PO SCH (09:39)
[2022-01-23 10:17] LABS: Eosinophils # (M) 0.23 k/uL (0-0.7); Lymphocytes # (M) 2.58 k/uL (1.0-4.8); Monocytes # (M) 0.15 k/uL (0-1.0); Neutrophils # (M) 4.64 k/uL (1.3-7.7); Neutrophils % (M) 61 %; Nucleated Red Blood Cells 0 /100 WBC (0-0); Total Cells Counted 100
[2022-01-23 10:18] LABS: Hypochromasia (M) Present; Polychromasia Present; Target Cells Present
[2022-01-23 11:59] LABS: Glucose,Whole Blood 107 mg/dL (75-99)
[2022-01-23 13:17] VITALS: BMI 58.6
[2022-01-23] MEDS ORDERED: SODIUM FERRIC GLUCONAT-SUCROSE 125 MG in SODIUM CHLORIDE 0.9% 100 ML IVPB ONE (14:00)
[2022-01-23] MEDS: HEPARIN SOD,PORK IN 0.45% NACL 25,000 UNIT in 0.45% NACL 1 250ML.BAG IV SCH (15:56)
--- NOTE | 2022-01-23 16:24 | P.PN ---
Subjective Progress Note Date: 01/23/22 H&P Date: 01/22/22 This is a 36 year old female in the with complaints of increased shortness of breath and back pain with deep inspiration. Patient has symptoms ongoing for the last 2 weeks with interval worsening the last 1-2 days. Patient also presents with dry cough and nasal congestion. Denies fever. Patient does have a history of pulmonary embolism in May 2021 as well as hypertension. Patient had gastric bypass 10 years and since has had issues with iron deficiency anemia requiring weekly iron transfusions. Danis following with Dr Kaushik Lopez in the primary care setting. She is from [place], and was following with a eligibility worker there. Reports no complications from bypass surgery. Home medications include xarelto and lisinopril, and daily iron supplement. Patient states that she had a chest CT done recently which did not show any pulmonary emboli, and states at that time her hemoglobin was low and she was offered blood transfusion but she declined. She has chronic fatigue related to anemia, as well as shortness of breath which she states makes it difficult to exercise. She is currently working, and has a desk job, she is mostly sedentary. There is a family history of blood clots, states her aunt and cousin, also family history of diabetes mellitus, hypertension. Denies history or family history of known clotting disorder, and she has never had clotting studies done. Chest x-ray on admission shows normal chest. Chest CTA showing multiple emboli in the lower lobe pulmonary artery branches bilaterally. EKG shows sinus rhythm heart rate 76, QT interval 437. On admission hemoglobin was found to be 7.5, troponin negative. Patient is negative for Covid, and influenza A/B. Admitted to the hospital and started on high intensity heparin gtt. Subsequently patients hemoglobin dropped to 6.6 this morning and 1 unit of packed red blood cells has been ordered with hemoglobin afterwards 7.7. Hematology was consulted for further evaluation, iron studes, B12 and folate have been ordered. She continues on heparin gtt at low intensity after discussion with hematology. Echocardiogram has been completed with no evidence for right heart strain, ejection fraction reported at 60-65%, the left atrium is moderately dilated, there is trace to mild aortic and mitral regurg, mild tricuspid regurg, mild pulmonary hypertension, no pericardial effusion. 01/23/2022 Hematology consultation recommending pradaxa on discharge which is pending prior authorization. For now patient continues on heparin infusion. Hemologbin today 8 .0 s/p 1 unit of PRBCs. She received a 1 time dose of IV iron today. Iron studies essentialy unremarkable, with exception of ferritin low at 7.0. Vitals stable, 100% on room air. Venous doppler negative for bilateral DVT. Review of Systems Constitutional: Reports fatigue. denied any fever. Cardio vascular: denied any chest pain, palpitations Gastrointestinal: denied any nausea, vomiting, diarrhea Pulmonary: Reports shortness of breath with exertion, denies cough. Neurologic denied any new focal deficits All inpatient medications were reviewed and appropriate changes in these medications as dictated in the interval history and assessment and plan. PHYSICAL EXAMINATION: GENERAL: The patient is alert and oriented x3, not in any acute distress. Well developed, well nourished. Obese. HEENT: Pupils are round and equally reacting to light. EOMI. No scleral icterus. No conjunctival pallor. Normocephalic, atraumatic. No pharyngeal erythema. No thyromegaly. CARDIOVASCULAR: S1 and S2 present. No murmurs, rubs, or gallops. PULMONARY: Chest is clear to auscultation, no wheezing or crackles. Diminished. ABDOMEN: Soft, nontender, nondistended, normoactive bowel sounds. No palpable organomegaly. MUSCULOSKELETAL: No joint swelling or deformity. EXTREMITIES: No cyanosis, clubbing, or pedal edema. NEUROLOGICAL: Gross neurological examination did not reveal any focal deficits. SKIN: No rashes. Assessment and plan Assessment 1 Dyspnea secondary to acute bilateral pulmonary emboli with history of PE. Patient is anticoagulated with xarelto in the outpatient setting, she is now on heparin infusion. Patient will need lifelong anticoagulation. -Acute on chronic anemia, iron deficient, exacerbated by supratherapeutic ptt while on heparin infusion. Hgb 8.0 s/p 1 unit PRBC, received IV iron transfusion today. -Mild pulmonary hypertension -History hypertension maintained on lisinopril -S/P Bariatric surgery in 2011 -Obesity -History anxiety/depression -Never smoker -History of marijuana use quit in 2020 GI prophylaxis: Pepcid DVT prophylaxis: heparin infusion Full Code Plan Continue on heparin infusion CBC in AM IV iron x 1 today Pending prior authorization for pradaxa on discharge Hematology consultation Possible DC tomorrow The impression and plan of care has been dictated by Nurse Tiffany Panchal as directed. Dr. Randall MD I have performed a history and physical examination and medical decision making of this patient, discussed the same with the dictator, and agree with the dict ators assessment and plan as written, documented as a scribe. Based on total visit time, I have performed more than 50% of this visit. Objective - Vital Signs Vital signs: Vital Signs Temp 97.2 F L 01/23/22 11:17 Pulse 71 01/23/22 11:17 Resp 18 01/23/22 11:17 BP 139/84 01/23/22 11:17 Pulse Ox 100 01/23/22 11:17 Intake & Output 01/22/22 01/23/22 01/23/22 18:59 06:59 18:59 Intake Total 341.233 318.256 165.891 Balance 341.233 318.256 165.891 Weight 136.078 kg 136.078 kg Intake: Intake, IV Titration 65.233 78.256 165.891 Amount Heparin Sod,Pork in 0.45% 65.233 78.256 165.891 NaCl 25,000 unit In 0.45 % NaCl 1 250ml.bag @ 7.3 UNITS/KG/HR 9.934 mls/hr IV .Q24H [facility] Rx#: [id number] Oral 240 Blood Product 276 Rc Pheresis 2 As3 Unit 276 [id number] Other: Voiding Method Toilet Toilet Toilet # Voids 2 1 # Bowel Movements 0 - Labs CBC & Chem 7: 01/23/22 08:38 01/21/22 19:25 Labs: Abnormal Lab Results - Last 24 Hours (Table) 01/22/22 01/22/22 01/23/22 Range/Units 17:07 21:42 08:38 Hgb 8.0 L (11.4-16.0) gm/dL Hct 28.6 L (34.0-46.0) % MCV 58.8 L (80.0-100.0) fL MCH 16.5 L (25.0-35.0) pg MCHC 28.0 L (31.0-37.0) g/dL RDW 23.4 H (11.5-15.5) % APTT 31.2 H 77.4 H (22.0-30.0) sec POC Glucose (mg/dL) (75-99) mg/dL 01/23/22 01/23/22 Range/Units 11:37 14:03 Hgb (11.4-16.0) gm/dL Hct (34.0-46.0) % MCV (80.0-100.0) fL MCH (25.0-35.0) pg MCHC (31.0-37.0) g/dL RDW (11.5-15.5) % APTT 32.6 H (22.0-30.0) sec POC Glucose (mg/dL) 107 H (75-99) mg/dL Assessment and Plan Time with Patient: Less than 30
--- NOTE | 2022-01-23 17:58 | P.PN ---
Subjective Progress Note Date: 01/23/22 Principal diagnosis: recurrent pulmonary embolism, on anticoagulation in follow-up today patient can speak without having difficulty in breathing, denies chest pain, palpitations, bleeding. Objective - Vital Signs Vital signs: Vital Signs Temp 97.2 F L 01/23/22 11:17 Pulse 71 01/23/22 11:17 Resp 18 01/23/22 11:17 BP 139/84 01/23/22 11:17 Pulse Ox 100 01/23/22 11:17 Intake & Output 01/22/22 01/23/22 01/23/22 18:59 06:59 18:59 Intake Total 341.233 318.256 102.022 Balance 341.233 318.256 102.022 Weight 136.078 kg Intake: Intake, IV Titration 65.233 78.256 102.022 Amount Heparin Sod,Pork in 0.45% 65.233 78.256 102.022 NaCl 25,000 unit In 0.45 % NaCl 1 250ml.bag @ 7.3 UNITS/KG/HR 9.934 mls/hr IV .Q24H [facility] Rx#: [id number] Oral 240 Blood Product 276 Rc Pheresis 2 As3 Unit 276 [id number] Other: Voiding Method Toilet Toilet Toilet # Voids 2 1 - Constitutional General appearance: Present: cooperative, morbidly obese, no acute distress - EENT Eyes: Present: anicteric sclerae, EOMI ENT: Present: hearing grossly normal - Respiratory Details: respirations even and unlabored at rest - Neurologic Neurologic: Present: CNII-XII intact - Musculoskeletal Musculoskeletal: Present: strength equal bilaterally - Psychiatric Psychiatric: Present: A&O x's 3, appropriate affect, intact judgment & insight - Labs CBC & Chem 7: 01/23/22 08:38 01/21/22 19:25 Labs: Abnormal Lab Results - Last 24 Hours (Table) 01/22/22 01/22/22 01/22/22 Range/Units 10:29 17:07 21:42 Hgb (11.4-16.0) gm/dL Hct (34.0-46.0) % MCV (80.0-100.0) fL MCH (25.0-35.0) pg MCHC (31.0-37.0) g/dL RDW (11.5-15.5) % APTT 31.2 H 77.4 H (22.0-30.0) sec POC Glucose (mg/dL) (75-99) mg/dL Ferritin 7.0 L (10.0-291.0) ng/mL 01/23/22 01/23/22 Range/Units 08:38 11:37 Hgb 8.0 L (11.4-16.0) gm/dL Hct 28.6 L (34.0-46.0) % MCV 58.8 L (80.0-100.0) fL MCH 16.5 L (25.0-35.0) pg MCHC 28.0 L (31.0-37.0) g/dL RDW 23.4 H (11.5-15.5) % APTT (22.0-30.0) sec POC Glucose (mg/dL) 107 H (75-99) mg/dL Ferritin (10.0-291.0) ng/mL - Imaging and Cardiology Venous US: report reviewed Assessment and Plan (1) Pulmonary embolism, bilateral Current Visit: Yes Status: Acute Priority: High Code(s): I26.99 - OTHER PULMONARY EMBOLISM WITHOUT ACUTE COR PULMONALE SNOMED Code(s): 36299629 Plan: Discussed with patient concerns for holding Xarelto as well as missing doses. Could be cause of recurrent PE. In which case missed doses would not be a failure of anticoagulation. Unfortunately, it is going to be very difficult to determine if there is chronic vs acute on chronic PE as we do not have previous images for the Radiologist to compare with the current CTA Recommendation is for change of anticoagulation, change of class of drug. Pradaxa ERx to pharm, Case Manger consulted for copay verification. Once it is known if drug cost is affordable to pt then it can be started, stop heparin drip when 1st dose given. Reports received from [place], negative for any notable abnormalities. BLE extremity Doppler was negative for DVT. CXR did not identify any cardiopulmonary process. No results of a CTA, no results from any laboratory workup were included. Doppler of the bilateral lower extremities was done for new baseline. No DVT. Patient received 1 unit of blood for hemoglobin of 6.6 4/12. Iron studies were done on blood after transfusion. Anemia likely, because of gastric bypass, heavy menses, worse with anticoagulation. Ferritin 7. Parenteral iron infusion ordered for today. Will cont in outpt setting. Cont low intensity heparin drip until oral anticoagulant plan in place Hypercoagulable work up outpt Anticoagulation duration will be discussed as trying to see if we can get any other details from [place]. Patient will follow with Hematology. Patient states she has sleep apnea, does not have her cpap. Have asked Nursing to get her a referral for a sleep study. Patient does have very heavy menses, exacerbated by anticoagulation. She may benefit from control but- she can only have absolute non-hormonal control. Had asked for a referral to NURSE HEALTHCARE MANAGER. Time with Patient: Greater than 30 (>50min spent counseling and coordinating care)
[2022-01-23 20:45] LABS: Anisocytosis Moderate; HCT 28.6 % (34.0-46.0); HGB 7.8 gm/dL (11.4-16.0); Hypochromasia Marked; MCH 16.2 pg (25.0-35.0); MCHC 27.2 g/dL (31.0-37.0); MCV 59.5 fL (80.0-100.0); Microcytosis Marked; Platelet Count 265 k/uL (150-450); Poikilocytosis Moderate; RDW 23.6 % (11.5-15.5); WBC 9.3 k/uL (3.8-10.6)
[2022-01-24 06:20] LABS: Anisocytosis Marked; Basophils # (A) 0.1 k/uL (0-0.2); Basophils % (A) 1 %; Eosinophils # (A) 0.3 k/uL (0-0.7); Eosinophils % (A) 3 %; HGB 8.1 gm/dL (11.4-16.0); Hypochromasia Marked; Lymphocytes # (A) 2.3 k/uL (1.0-4.8); Lymphocytes % (A) 27 %; MCH 16.5 pg (25.0-35.0); MCHC 27.9 g/dL (31.0-37.0); Mean Platelet Volume 6.8; Microcytosis Marked; Monocytes # (A) 0.3 k/uL (0-1.0); Monocytes % (A) 4 %; Neutrophils # (A) 5.3 k/uL (1.3-7.7); Neutrophils % (A) 62 %; Platelet Count 289 k/uL (150-450); Poikilocytosis Moderate; RBC 4.91 m/uL (3.80-5.40); RDW 24.4 % (11.5-15.5); WBC 8.5 k/uL (3.8-10.6)
[2022-01-24 06:49] LABS: Polychromasia Present; RBC Fragments Present
[2022-01-24 06:50] LABS: Ovalocytes Present; Target Cells Present
[2022-01-24 08:46] LABS: Methylmalonic Acid <0.10 umol/L (<0.40)
[2022-01-24] MEDS: FERROUS SULFATE 325 MG TAB PO SCH (09:16)
[2022-01-24] MEDS: amLODIPine 5 MG TAB PO SCH (09:16)
[2022-01-24] MEDS: FAMOTIDINE 20 MG TAB PO SCH ×2 (09:17→21:02)
[2022-01-24] MEDS: lisinopriL 10 MG TAB PO SCH (09:17)
--- NOTE | 2022-01-24 12:47 | P.PN ---
Subjective Progress Note Date: 01/24/22 Principal diagnosis: recurrent pulmonary embolism, on anticoagulation No reported bleeding or new pt c/o as reviewed with nursing Objective - Vital Signs Vital signs: Vital Signs Temp 98.0 F 01/24/22 08:00 Pulse 67 01/24/22 08:00 Resp 18 01/24/22 08:00 BP 139/91 01/24/22 08:00 Pulse Ox 96 01/24/22 08:00 Intake & Output 01/23/22 01/24/22 01/24/22 18:59 06:59 18:59 Intake Total 165.891 Balance 165.891 Weight 136.078 kg Intake: Intake, IV Titration 165.891 Amount Heparin Sod,Pork in 0.45% 165.891 NaCl 25,000 unit In 0.45 % NaCl 1 250ml.bag @ 7.3 UNITS/KG/HR 9.934 mls/hr IV .Q24H [facility] Rx#: [id number] Other: Voiding Method Toilet Toilet Toilet # Voids 1 1 1 # Bowel Movements 0 - Exam A&Ox4, NAD - Constitutional General appearance: Present: morbidly obese - Labs CBC & Chem 7: 01/24/22 05:50 01/21/22 19:25 Labs: Abnormal Lab Results - Last 24 Hours (Table) 01/23/22 01/23/22 01/23/22 Range/Units 14:03 20:07 20:07 Hgb 7.8 L (11.4-16.0) gm/dL Hct 28.6 L (34.0-46.0) % MCV 59.5 L (80.0-100.0) fL MCH 16.2 L (25.0-35.0) pg MCHC 27.2 L (31.0-37.0) g/dL RDW 23.6 H (11.5-15.5) % APTT 32.6 H 88.0 H (22.0-30.0) sec 01/24/22 01/24/22 Range/Units 05:50 05:50 Hgb 8.1 L (11.4-16.0) gm/dL Hct 29.0 L (34.0-46.0) % MCV 59.0 L (80.0-100.0) fL MCH 16.5 L (25.0-35.0) pg MCHC 27.9 L (31.0-37.0) g/dL RDW 24.4 H (11.5-15.5) % APTT 54.3 H (22.0-30.0) sec Assessment and Plan (1) Pulmonary embolism, bilateral Current Visit: Yes Status: Acute Priority: High Code(s): I26.99 - OTHER PULMONARY EMBOLISM WITHOUT ACUTE COR PULMONALE SNOMED Code(s): 41899787 Plan: Recommendation is for change of anticoagulation class of drug. Pradaxa ERx to pharm, Case Manger consulted for copay verification, prior auth completed, still pending results. Once it is known if drug cost is affordable to pt then it can be started, stop heparin drip when 1st dose given. Reports received from [place], negative for any notable abnormalities. BLE extremity Doppler was negative for DVT. CXR did not identify any cardiopulmonary process. No results of a CTA, no results from any laboratory workup were included. Doppler of the bilateral lower extremities was done for new baseline. No DVT. Patient received 1 unit of blood for hemoglobin of 6.6 01/22. Iron studies were done on blood after transfusion. Anemia likely, because of gastric bypass, heavy menses, worse with anticoagulation. Ferritin 7. Parenteral iron infusion given. Will cont in outpt setting. Hgb 8.1 today. F/U appt in DC plan. Cont low intensity heparin drip until oral anticoagulant plan in place Hypercoagulable work up outpt Anticoagulation duration will be discussed as trying to see if we can get any other details from [place]. Patient will follow with Hematology. Patient states she has sleep apnea, does not have her cpap. Have asked Nursing to get her a referral for a sleep study. Patient does have very heavy menses, exacerbated by anticoagulation. She may benefit from control but- she can only have absolute non-hormonal control. Had asked for a referral to [facility].
[2022-01-24] MEDS: HEPARIN SOD,PORK IN 0.45% NACL 25,000 UNIT in 0.45% NACL 1 250ML.BAG IV SCH (18:35)
[2022-01-24] MEDS: DABIGATRAN 150 MG CAP PO SCH (21:02)
[2022-01-24] MEDS ORDERED: MELATONIN 5 MG TABLET PO PRN (21:51)
[2022-01-25] MEDS: lisinopriL 10 MG TAB PO SCH (09:46)
[2022-01-25] MEDS: DABIGATRAN 150 MG CAP PO SCH ×2 (09:46→20:34)
[2022-01-25] MEDS: FERROUS SULFATE 325 MG TAB PO SCH (09:46)
[2022-01-25] MEDS: FAMOTIDINE 20 MG TAB PO SCH ×2 (09:46→20:34)
[2022-01-25] MEDS: amLODIPine 5 MG TAB PO SCH (09:46)
[2022-01-25 10:04] LABS: African American GFR (CKD) >90 (>60 ml/min/1.73 sqM); Anion Gap 8 mmol/L; Blood Urea Nitrogen 10 mg/dL (7-17); Calcium 8.7 mg/dL (8.4-10.2); Carbon Dioxide 21 mmol/L (22-30); Chloride 110 mmol/L (98-107); Glucose 96 mg/dL (74-99); Non-African American GFR(CKD) 86 (>60 ml/min/1.73 sqM); Potassium 4.4 mmol/L (3.5-5.1); Sodium 139 mmol/L (137-145)
[2022-01-25 10:17] LABS: Anisocytosis Marked; Basophils % (A) 0 %; Eosinophils # (A) 0.3 k/uL (0-0.7); Eosinophils % (A) 4 %; HCT 30.1 % (34.0-46.0); HGB 8.4 gm/dL (11.4-16.0); Hypochromasia Marked; Lymphocytes # (A) 1.7 k/uL (1.0-4.8); Lymphocytes % (A) 21 %; MCH 16.7 pg (25.0-35.0); MCHC 27.8 g/dL (31.0-37.0); Mean Platelet Volume 7.8; Microcytosis Marked; Monocytes # (A) 0.4 k/uL (0-1.0); Monocytes % (A) 4 %; Neutrophils # (A) 5.4 k/uL (1.3-7.7); Neutrophils % (A) 68 %; Platelet Count 269 k/uL (150-450); Poikilocytosis Moderate; RBC 5.02 m/uL (3.80-5.40)
[2022-01-25 10:25] LABS: RDW 26.8 % (11.5-15.5)
[2022-01-25 11:37] LABS: Polychromasia Present; Target Cells Present
--- NOTE | 2022-01-25 17:10 | P.PN ---
Subjective Progress Note Date: 01/25/22 Principal diagnosis: Bilateral PE No acute events overnight. Objective - Vital Signs Vital signs: Vital Signs Temp 98.2 F 01/25/22 08:00 Pulse 77 01/25/22 08:00 Resp 20 01/25/22 08:00 BP 142/84 01/25/22 08:00 Pulse Ox 98 01/25/22 08:00 Intake & Output 01/24/22 01/25/22 01/25/22 18:59 06:59 18:59 Intake Total 250 240 Balance 250 240 Intake: Intake, IV Titration 250 Amount Heparin Sod,Pork in 0.45% 250 NaCl 25,000 unit In 0.45 % NaCl 1 250ml.bag @ 7.3 UNITS/KG/HR 9.934 mls/hr IV .Q24H [facility] Rx#: [id number] Oral 240 Other: Voiding Method Toilet Toilet Toilet # Voids 5 2 - Exam - Exam A&Ox4, NAD - Constitutional General appearance: Present: morbidly obese - Labs CBC & Chem 7: 01/25/22 09:12 01/25/22 09:12 Labs: Abnormal Lab Results - Last 24 Hours (Table) 01/25/22 01/25/22 Range/Units 09:12 09:12 Hgb 8.4 L (11.4-16.0) gm/dL Hct 30.1 L (34.0-46.0) % MCV 60.0 L (80.0-100.0) fL MCH 16.7 L (25.0-35.0) pg MCHC 27.8 L (31.0-37.0) g/dL RDW 26.8 H (11.5-15.5) % Chloride 110 H (98-107) mmol/L Carbon Dioxide 21 L (22-30) mmol/L Assessment and Plan Plan: Assessment and Plan (1) Pulmonary embolism, bilateral Current Visit: Yes Status: Acute Priority: High Code(s): I26.99 - OTHER PULMONARY EMBOLISM WITHOUT ACUTE COR PULMONALE SNOMED Code(s): 32698727 Plan: Pradaxa to continue, and after discharge. Reports received from [place], negative for any notable abnormalities. BLE extremity Doppler was negative for DVT. CXR did not identify any cardiopulmonary process. Iron Deficiency Anemia: Secondary to possible GI blood loss, Heavy Menses, and history of Gastric Bypass Status post IV iron and plan to follow closely after discharge for IV Iron PRN while AC therapy risk of increased blood loss anemia Hypercoagulable work up outpt Anticoagulation duration will be discussed as trying to see if we can get any other details from [place]. Patient will follow with Hematology. Patient states she has sleep apnea, does not have her cpap. Repeat sleep study here recommended for appropriate cpap and settings [employer] referral regarding heavy menses and not candidate for standard control, defer ablation options versus other to [employer] Dr. Haji: I have completed the full history and physical and developed the above impression and plan, agree with dictation, dictated as a scribe
[2022-01-26] MEDS: FAMOTIDINE 20 MG TAB PO SCH (10:16)
[2022-01-26] MEDS: amLODIPine 5 MG TAB PO SCH (10:16)
[2022-01-26] MEDS: DABIGATRAN 150 MG CAP PO SCH (10:16)
[2022-01-26] MEDS: FERROUS SULFATE 325 MG TAB PO SCH (10:16)
[2022-01-26] MEDS: lisinopriL 10 MG TAB PO SCH (10:16)
[2022-01-26] MEDS ORDERED: polyethylene glycoL 3350 17 GM POWD.PACK PO SCH (11:30)
[2022-01-26] MEDS: HEPARIN SOD,PORK IN 0.45% NACL 25,000 UNIT in 0.45% NACL 1 250ML.BAG IV SCH (11:42)
[2022-01-26 15:12] VITALS: BP 134/78; PULSE 78; RESP 14; TEMP 98
== END 2022-01-26 16:24 | disposition home or self-care (01) | DRG 176 ==
LOC: EC 18:27 → 3SCARD 21:45
PROVIDERS: ADMIT Hospitalist; ATTEND Hospitalist
DX: I26.99 Other pulmonary embolism without acute cor pulmonale (principal); Z68.43 Body mass index [BMI] 50.0-59.9, adult; D50.9 Iron deficiency anemia, unspecified; E66.9 Obesity, unspecified; E78.5 Hyperlipidemia, unspecified; I10 Essential (primary) hypertension; Z20.822 Contact with and (suspected) exposure to COVID-19; I27.20 Pulmonary hypertension, unspecified; R53.82 Chronic fatigue, unspecified; R79.1 Abnormal coagulation profile; Z79.01 Long term (current) use of anticoagulants; Z79.899 Other long term (current) drug therapy; Z82.49 Family history of ischemic heart disease and other diseases of the circulatory system; Z83.3 Family history of diabetes mellitus; Z86.711 Personal history of pulmonary embolism; Z98.84 Bariatric surgery status
CPT/HCPCS: 36415; 71046; 71275; 80048; 80053; 81003; 82272; 82607; 82728; 82747; 83540; 83550; 83690; 83735; 83921; 84484; 84703; 85025; 85027; 85610; 85730; 86850; 86900; 86901; 86920; 87502; 87635; 93005; 93306; 93970; 96361; 96374; 99285

== ENCOUNTER 2024-05-01 15:12 | Emergency (ER) | payer BC, MEDICAID ==
[2024-05-01 15:18] VITALS: TEMP 98
--- NOTE | 2024-05-01 15:34 | ED ---
Recheck HPI - General Source: patient, RN notes reviewed Mode of arrival: ambulatory Limitations: no limitations <Chhaya Murillo - Last Filed: 05/01/24 16:56> - General Source: patient, RN notes reviewed Mode of arrival: ambulatory Limitations: no limitations <Patricia Hebert - Last Filed: 05/01/24 19:01> - General Chief Complaint: Recheck/Abnormal Lab/Rx Stated Complaint: leg pain, SOB Time Seen by Provider: 05/01/24 15:33 - History of Present Illness Initial Comments: 39-year-old female with a past medical history significant of pulmonary embolism and hypertension presenting to the ER with a chief complaint of shortness of breath. Patient reports for approximately 1.5 weeks she has been out of her medications as she recently moved here from [place]. She does state she flew from [place] to [place]. She reports for about 5 to 7 days she has been endorsing bilateral calf pain/tenderness to palpation. She also reports lower extremity edema which she believed was due to being on her feet all day. She states for the past 3 to 4 days she has been having an increase in exertional dyspnea. She states it is difficult for her to walk from the house to her car. She denies any home O2 use, fevers, chills, cough, congestion. She denies any chest pain, abdominal pain, urinary complaints. (Chhaya Murillo) - Related Data Home Medications Medication Instructions Recorded Confirmed Ferrous Sulfate [Iron (65 MG 325 mg PO DAILY 01/21/22 01/21/22 Elemental)] lisinopriL [Zestril] 10 mg PO DAILY 01/21/22 01/21/22 Previous Rx's Medication Instructions Recorded Dabigatran [Pradaxa] 150 mg PO BID #60 capsule 05/01/24 Allergies Allergy/AdvReac Type Severity Reaction Status Date / Time morphine Allergy Itching Verified 05/01/24 15:18 Review of Systems ROS Other: All systems not noted in ROS Statement are negative. <Chhaya Murillo - Last Filed: 05/01/24 16:56> ROS Other: All systems not noted in ROS Statement are negative. <Patricia Hebert - Last Filed: 05/01/24 19:01> ROS Statement: Those systems with pertinent positive or pertinent negative responses have been documented in the HPI. 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, History of Any Multi-Drug Resistant Organisms: None Reported Past Surgical History: No Surgical Hx Reported Additional Past Surgical History / Comment(s): gastric bypass approx 2011 Past Anesthesia/Blood Transfusion Reactions: No Reported Reaction Past Psychological History: No Psychological Hx Reported Smoking Status: Former smoker Past Alcohol Use History: None Reported Past Drug Use History: Marijuana - Past Family History Mother Additional Family Medical History / Comment(s): Maternal side of family cousin and great Aunt with blood clots Father Family Medical History: Diabetes Mellitus Additional Family Medical History / Comment(s): Bleeding hemorrhoids that required transfusions, heart problems. <Chhaya Murillo - Last Filed: 05/01/24 16:56> General Exam Limitations: no limitations General appearance: alert, in no apparent distress Respiratory exam: Present: normal lung sounds bilaterally. Absent: respiratory distress, wheezes, rales, rhonchi, stridor Cardiovascular Exam: Present: regular rate, normal rhythm, normal heart sounds. Absent: systolic murmur, diastolic murmur, rubs, gallop, clicks Extremities exam: Present: calf tenderness (Bilaterally. Nonpitting edema bilaterally. 2+ bilateral dorsalis pedis pulse.) Neurological exam: Present: alert, oriented X3, CN II-XII intact Skin exam: Present: warm, dry, intact, normal color. Absent: rash <Chhaya Murillo - Last Filed: 05/01/24 16:56> Course Vital Signs 05/01/24 05/01/24 15:14 18:49 Temperature 98 F Pulse Rate 87 78 Respiratory 18 16 Rate Blood Pressure 158/89 189/119 O2 Sat by Pulse 98 97 Oximetry Medical Decision Making - Lab Data Result diagrams: 05/01/24 15:37 05/01/24 15:37 - EKG Data -: EKG Interpreted by Me <Chhaya Murillo - Last Filed: 05/01/24 16:56> - Lab Data Result diagrams: 05/01/24 15:37 05/01/24 15:37 - Radiology Data Radiology results: report reviewed, image reviewed <Patricia Hebert - Last Filed: 05/01/24 19:01> - Medical Decision Making Was pt. sent in by a medical professional or institution (, [facility]AN, MANAGER INTELLIGENCE, urgent care, hospital, or detention...) When possible be specific @ -No Did you speak to anyone other than the patient for history (EMS, parent, family, police, friend...)? What history was obtained from this source @ -No Did you review nursing and triage notes (agree or disagree)? Why? @ -I reviewed and agree with nursing and triage notes Were old charts reviewed (outside hosp., previous admission, EMS record, old EKG, old radiological studies, urgent care reports/EKG's, detention records)? Report findings @ -No old charts were reviewed Differential Diagnosis (chest pain, altered mental status, abdominal pain women, abdominal pain men, vaginal bleeding, weakness, fever, dyspnea, syncope, headache, dizziness, GI bleed, back pain, seizure, CVA, palpatations, mental health, musculoskeletal)? @ -Differential Dyspnea:Coronary syndrome, arrhythmia, tamponade, asthma, COPD, pulmonary embolism, pneumonia, pneumothorax, pulmonary effusion, anaphylaxis, diabetic ketoacidosis, flailed chest, pulmonary contusion, diaphragmatic rupture, anemia, neuromuscular, this is not meant to be an all-inclusive list. EKG interpreted by me (3pts min.). @ -As above X-rays interpreted by me (1pt min.). @ -None done CT interpreted by me (1pt min.). @ -pending U/S interpreted by me (1pt. min.). @ -pending What testing was considered but not performed or refused? (CT, X-rays, U/S, labs)? Why? @ -None What meds were considered but not given or refused? Why? @ -None Did you discuss the management of the patient with other professionals (professionals i.e. SUSAN Jeter, MANAGER INTELLIGENCE, lab, RT, psych nurse, public health social worker, atv mechanic, teacher, seismology technical officer, caseworker)? Give summary @ -No Was smoking cessation discussed for >3mins.? @ -No Was critical care preformed (if so, how long)? @ -No Were there social determinants of health that impacted care today? How? (Homelessness, low income, unemployed, alcoholism, drug addiction, transportation, low edu. Level, literacy, decrease access to med. care, [facility], rehab)? @ -No Was there de-escalation of care discussed even if they declined (Discuss DNR or withdrawal of care, Hospice)? DNR status @ -No What co-morbidities impacted this encounter? (DM, HTN, Smoking, COPD, CAD, Cancer, CVA, ARF, Chemo, Hep., AIDS, mental health diagnosis, sleep apnea, morbi d obesity)? @ -Hx PE Was patient admitted / discharged? Hospital course, mention meds given and rou te, prescriptions, significant lab abnormalities, going to OR and other pertinent info. @ -39 year old female presenting to the ER with a chief complaint dyspnea. History and physical exam completed. Vitals stable. Patient has no signs of acute distress and nontoxic-appearing. Laboratory studies obtained remarkable for a microcytic hypochromic anemia hemoglobin 8.9 which appears to be chronic in nature. Viral swabs negative. Bilateral ultrasound venous Doppler and CTA chest obtained and pending. Patient signed out to Patricia Hebert PA-C pending imaging results and disposition. (Chhaya Murillo) This is a 39 year old female who presents to the emergency department for shortness of breath. She has a hx of PE in 2020. She was still taking Pradaxa, but had been out of it for the last 1.5 weeks, she recently moved from [place]. Over the last 5 to 7 days she has had pain in her lower extremities and over the last 3 to 4 days she has had worsening shortness of breath on exertion. Case signed out to me by Chhaya Murillo PA-C, pending imaging results and disposition. On lab work, BNP was elevated at 1900. Duplex ultrasound of the bilateral lower lower extremities demonstrates no evidence of a DVT. CTA of the chest reveals no evidence of a pulmonary embolus. She was noted to have mild cardiomegaly as well as pulmonary hypertension. The swelling, shortness of breath, and elevated BNP may be the result of pulmonary hypertension that is suspected based on CT results. Findings reviewed with the patient. Discussed that this can be followed up on an outpatient basis. She did request a refill on her Pradaxa until she can see her primary care provider. This was provided as well. Patient discharged home in stable condition. (Patricia Hebert) - Lab Data Lab Results 05/01/24 05/01/24 05/01/24 Range/Units 15:37 15:37 15:37 WBC 10.4 (3.8-10.6) k/uL RBC 5.14 (3.80-5.40) m/uL Hgb 8.9 L (11.4-16.0) gm/dL Hct 30.7 L (34.0-46.0) % MCV 59.8 L (80.0-100.0) fL MCH 17.2 L (25.0-35.0) pg MCHC 28.9 L (31.0-37.0) g/dL RDW 23.2 H (11.5-15.5) % Plt Count 233 (150-450) k/uL MPV 7.4 Neutrophils % 73 % Lymphocytes % 18 % Monocytes % 7 % Eosinophils % 0 % Basophils % 0 % Neutrophils # 7.6 (1.3-7.7) k/uL Lymphocytes # 1.8 (1.0-4.8) k/uL Monocytes # 0.7 (0-1.0) k/uL Eosinophils # 0.0 (0-0.7) k/uL Basophils # 0.0 (0-0.2) k/uL Manual Slide Review Performed Hypochromasia Marked Poikilocytosis Moderate Poikilocytosis (manual Present Anisocytosis Moderate Anisocytosis (manual) Present Microcytosis Marked Target Cells Present Fragmented RBCs Present PT (10.0-12.5) sec INR (<1.2) APTT (22.0-30.0) sec Sodium 138 (137-145) mmol/L Potassium 3.9 (3.5-5.1) mmol/L Chloride 108 H (98-107) mmol/L Carbon Dioxide 19 L (22-30) mmol/L Anion Gap 11 mmol/L BUN 9 (7-17) mg/dL Creatinine 0.79 (0.52-1.04) mg/dL Est GFR (CKD-EPI)AfAm >90 (>60 ml/min/1.73 sqM) Est GFR (CKD-EPI)NonAf >90 (>60 ml/min/1.73 sqM) Glucose 109 H (74-99) mg/dL Calcium 9.2 (8.4-10.2) mg/dL Total Bilirubin 0.8 (0.2-1.3) mg/dL AST 32 (14-36) U/L ALT 17 (4-34) U/L Alkaline Phosphatase 91 (38-126) U/L Troponin I (0.000-0.034) ng/mL NT-Pro-B Natriuret Pep 1900 pg/mL Total Protein 7.1 (6.3-8.2) g/dL Albumin 4.1 (3.5-5.0) g/dL Influenza Type A (PCR) Not Detected (Not Detectd) Influenza Type B (PCR) Not Detected (Not Detectd) RSV (PCR) Not Detected (Not Detectd) SARS-CoV-2 (PCR) Not Detected (Not Detectd) 05/01/24 05/01/24 Range/Units 15:37 17:01 WBC (3.8-10.6) k/uL RBC (3.80-5.40) m/uL Hgb (11.4-16.0) gm/dL Hct (34.0-46.0) % MCV (80.0-100.0) fL MCH (25.0-35.0) pg MCHC (31.0-37.0) g/dL RDW (11.5-15.5) % Plt Count (150-450) k/uL MPV Neutrophils % % Lymphocytes % % Monocytes % % Eosinophils % % Basophils % % Neutrophils # (1.3-7.7) k/uL Lymphocytes # (1.0-4.8) k/uL Monocytes # (0-1.0) k/uL Eosinophils # (0-0.7) k/uL Basophils # (0-0.2) k/uL Manual Slide Review Hypochromasia Poikilocytosis Poikilocytosis (manual Anisocytosis Anisocytosis (manual) Microcytosis Target Cells Fragmented RBCs PT 10.5 (10.0-12.5) sec INR 0.9 (<1.2) APTT 22.4 (22.0-30.0) sec Sodium (137-145) mmol/L Potassium (3.5-5.1) mmol/L Chloride (98-107) mmol/L Carbon Dioxide (22-30) mmol/L Anion Gap mmol/L BUN (7-17) mg/dL Creatinine (0.52-1.04) mg/dL Est GFR (CKD-EPI)AfAm (>60 ml/min/1.73 sqM) Est GFR (CKD-EPI)NonAf (>60 ml/min/1.73 sqM) Glucose (74-99) mg/dL Calcium (8.4-10.2) mg/dL Total Bilirubin (0.2-1.3) mg/dL AST (14-36) U/L ALT (4-34) U/L Alkaline Phosphatase (38-126) U/L Troponin I <0.012 (0.000-0.034) ng/mL NT-Pro-B Natriuret Pep pg/mL Total Protein (6.3-8.2) g/dL Albumin (3.5-5.0) g/dL Influenza Type A (PCR) (Not Detectd) Influenza Type B (PCR) (Not Detectd) RSV (PCR) (Not Detectd) SARS-CoV-2 (PCR) (Not Detectd) - EKG Data EKG Comments: EKG taken at 15: 46 showing a normal sinus rhythm with no acute ST segment or T wave abnormalities. Normal axis. Ventricular rate 62, [place] interval 149, QRS duration 98, QT/QTc 411/417. (Chhaya Murillo) Disposition <Chhaya Murillo - Last Filed: 05/01/24 16:56> Is patient prescribed a controlled substance at d/c from ED?: No Time of Disposition: 18:22 <Patricia Hebert - Last Filed: 05/01/24 19:01> Clinical Impression: Shortness of breath Disposition: HOME SELF-CARE Instructions (If sedation given, give patient instructions): Shortness of Breath (ED) Additional Instructions: Return to the emergency department with any new, worsening, or concerning symptoms. Resume taking your Pradaxa. Follow up with your primary care provider in 1-2 days. Let them know that there was concern about pulmonary hypertension on your imaging. Prescriptions: Dabigatran [Pradaxa] 150 mg PO BID #60 capsule Referrals: Kaushik Lopez DO [Primary Care Provider] - 1-2 days
[2024-05-01 15:56] LABS: Anisocytosis Moderate; Basophils % (A) 0 %; Eosinophils % (A) 0 %; HCT 30.7 % (34.0-46.0); HGB 8.9 gm/dL (11.4-16.0); Hypochromasia Marked; Lymphocytes # (A) 1.8 k/uL (1.0-4.8); Lymphocytes % (A) 18 %; MCH 17.2 pg (25.0-35.0); MCHC 28.9 g/dL (31.0-37.0); MCV 59.8 fL (80.0-100.0); Mean Platelet Volume 7.4; Microcytosis Marked; Monocytes # (A) 0.7 k/uL (0-1.0); Monocytes % (A) 7 %; Neutrophils # (A) 7.6 k/uL (1.3-7.7); Neutrophils % (A) 73 %; Platelet Count 233 k/uL (150-450); Poikilocytosis Moderate; RBC 5.14 m/uL (3.80-5.40); RDW 23.2 % (11.5-15.5); WBC 10.4 k/uL (3.8-10.6)
[2024-05-01 15:57] LABS: INR 0.9 (<1.2); Partial Thromboplastin Time 22.4 sec (22.0-30.0); Prothrombin Time 10.5 sec (10.0-12.5)
[2024-05-01 15:58] LABS: ALT 17 U/L (4-34); AST 32 U/L (14-36); African American GFR (CKD) >90 (>60 ml/min/1.73 sqM); Albumin 4.1 g/dL (3.5-5.0); Alkaline Phosphatase 91 U/L (38-126); Anion Gap 11 mmol/L; Blood Urea Nitrogen 9 mg/dL (7-17); Calcium 9.2 mg/dL (8.4-10.2); Carbon Dioxide 19 mmol/L (22-30); Chloride 108 mmol/L (98-107); Glucose 109 mg/dL (74-99); Non-African American GFR(CKD) >90 (>60 ml/min/1.73 sqM); Potassium 3.9 mmol/L (3.5-5.1); Sodium 138 mmol/L (137-145); Total Bilirubin 0.8 mg/dL (0.2-1.3); Total Protein 7.1 g/dL (6.3-8.2)
[2024-05-01 16:06] LABS: NT-Pro-B-Type Natriuretic Pept 1900 pg/mL
[2024-05-01 16:24] LABS: Anisocytosis (M) Present; Poikilocytosis (M) Present; RBC Fragments Present; Target Cells Present
--- NOTE | 2024-05-01 17:03 | US ---
EXAMINATION TYPE: US venous doppler duplex LE DATE OF EXAM: 05/01/2024 4:28 PM COMPARISON: NONE CLINICAL INDICATION: Female, 39 years old with history of calf tenderness/edema hx PE; calf pain, no h/o dvt in legs but h/o PE's, stopped thinners 1 week ago due to moving states, no swelling, 320lb SIDE PERFORMED: Bilateral TECHNIQUE: The lower extremity deep venous system is examined utilizing real time linear array sonog matti with graded compression, doppler sonography and color-flow sonography. VESSELS IMAGED: Common Femoral Vein Deep Femoral Vein Greater Saphenous Vein * Femoral Vein Popliteal Vein Small Saphenous Vein * Proximal Calf Veins (* superficial vessels) Right Leg: Negative for DVT Left Leg: Negative for DVT IMPRESSION: Grayscale, color doppler, spectral doppler imaging performed of the deep veins of the lo wer extremities. There is normal flow, compressibility, vascular waveforms.
--- NOTE | 2024-05-01 17:14 | CT ---
EXAMINATION TYPE: CT chest angio for PE CT DLP: combined 1975.1 mGycm, Automated exposure control for dose reduction was used. DATE OF EXAM: 05/01/2024 4:44 PM COMPARISON: Chest radiograph from same day. 01/21/2022 CLINICAL INDICATION:Female, 39 years old with history of sob hx PE; SOB, bilateral leg swelling, hist ory of PE 2020 TECHNIQUE/CONTRAST: CTA scan of the thorax is performed with IV Contrast, patient injected with APPROX 155 mL of Isovue 3 70, MIP images are created and reviewed these are created on a separate workstation.. FINDINGS: Pulmonary Artery: There is no evidence for a filling defect within the pulmonary vasculature to sugge st acute pulmonary embolism. The pulmonary artery is dilated up to 42 mm. Lungs/Pleura: No evidence of focal consolidation, pleural effusion or pneumothorax. Airway: Large airways are patent. Heart: The heart is mildly enlarged for size. Atherosclerosis of the arterial vasculature. Vasculature: No evidence of aortic aneurysm. Mediastinum: No gross evidence of adenopathy. Musculoskeletal: No acute osseous abnormalities Soft Tissues/lymph nodes: Unremarkable. Lower neck: No significant findings. Upper Abdomen: Gastric lap and surgery. IMPRESSION: 1. No evidence of central pulmonary embolism. Limited evaluation of the segmental and subsegmental br anches. 2. Mild cardiomegaly with pulmonary hypertension.
[2024-05-01] MEDS: DABIGATRAN 150 MG CAP PO STA (18:43)
[2024-05-01 18:52] VITALS: BP 189/119; PULSE 78; RESP 16
== END 2024-05-01 18:52 | disposition home or self-care (01) ==
LOC: EC 15:12
DX: R06.02 Shortness of breath (principal); M79.604 Pain in right leg; M79.605 Pain in left leg; Z86.711 Personal history of pulmonary embolism; Z88.5 Allergy status to narcotic agent; Z87.891 Personal history of nicotine dependence
CPT/HCPCS: 99285; 36415; 93005; 83880; 80053; 84484; 85025; 85610; 85730; 87636; 93970; 71275; Q9967